=== PATIENT | female | born 1995 | race Caucasian/White ===

== ENCOUNTER 2024-01-30 23:42 | Inpatient (IN) ==
--- NOTE | 2024-01-30 23:55 | Emergency Department Note ---
History of Present Illness General Chief complaint: Alcohol Intoxication Stated complaint: ALCOHOL OVERDOSE Time Seen by Provider: 01/30/24 23:43 History of Present Illness This 28-year-old female presents ER for alcohol intoxication. She apparently drank too much alcohol at the basement. She could not ambulate and EMS was summoned. No other concerns per patient. History is obtained from EMS. Patient moans to sternal rub. Home Medications Medication Instructions Recorded Confirmed Type Unobtainable 01/31/24 01/31/24 History Past Med/Surg History Social History Smoking Status: Unknown if ever smoked Preferred Language: Macedonian Review of Systems A total of 10 systems reviewed and were otherwise negative Physical Exam Vital Signs Vital Signs - 24 hr 01/30/24 23:49 01/30/24 23:58 01/31/24 00:24 Temperature 36.5 C Temperature Source Oral Pulse Rate 82 78 Pulse Rate [Left Finger] Respiratory Rate 18 Respiratory Effort / Characteristics Non-Labored Respiratory Depth Normal Blood Pressure 120/98 Blood Pressure [Right Arm] Blood Pressure Mean 105 Blood Pressure Mean [Right Arm] Blood Pressure Position [Right Arm] Pulse Oximetry 95 93 Oxygen Delivery Method Room Air Room Air Sepsis Recent Fever Within 48 Hours No Sepsis New/Unexplained Change in Mental Status No Sepsis Action Taken by Nursing No Action Required 01/31/24 01:27 01/31/24 01:28 Temperature Temperature Source Pulse Rate Pulse Rate [Left Finger] 77 Respiratory Rate 15 Respiratory Effort / Characteristics Respiratory Depth Blood Pressure Blood Pressure [Right Arm] 103/77 Blood Pressure Mean Blood Pressure Mean [Right Arm] 85 Blood Pressure Position [Right Arm] Lying Pulse Oximetry 97 97 Oxygen Delivery Method Room Air Room Air Sepsis Recent Fever Within 48 Hours Sepsis New/Unexplained Change in Mental Status Sepsis Action Taken by Nursing PHYSICAL EXAM: VITALS: Vitals are noted on the nurse's note and reviewed by myself. Vital signs stable. GENERAL: White female with EtOH odor, patient moans to sternal rub. SKIN: The skin was without obvious lacerations, abrasions, or rashes. There is no tenting of the skin. Capillary reflex less than 2 seconds. HEENT: Normocephalic, atraumatic. PERRLA. EOMI. Conjunctiva with mild injection without icterus. Tympanic membranes without erythema or effusion bilaterally no hemotympanum. External auditory canals are clear. Nares patent bilaterally. No epistaxis. Oropharynx without erythema or exudate. Uvula midline. Oral mucosal moist. No lymphadenopathy. Neck is supple without cervical spine tenderness. HEART: Regular rate and rhythm LUNGS: Clear to auscultation bilaterally without wheezes, rales or rhonchi. ABDOMEN: Positive bowel sounds x 4. Normal tympanic percussion. Soft, nontender, without masses or organomegaly. MUSCULOSKELETAL: Gross motor function of the upper and lower extremities intact. The patient has a staggering gait. NEUROLOGIC: The patient is visibly intoxicated. Patient moans and withdraws to sternal rub. Course Administered Medications Sodium Chloride (Nss) 1,000 mls @ 999 mls/hr IV .Q1H1M ONE Stop: 01/31/24 01:53 Last Admin: 01/31/24 01:34 Dose: 999 mls/hr Documented By: KANU Medical Decision Making Medical Records Attestation: I reviewed the patient's medical records. Home Medications Current Medication List: was personally reviewed by me Laboratory Data Attestation: I reviewed the patient's lab results. 01/31/24 Unknown 01/30/24 23:57 Lab Results 01/30/24 01/31/24 01/31/24 Range/Units 23:57 01:25 Unknown WBC 9.29 (4.8-10.8) K/ul RBC 3.97 L (4.20-5.40) M/uL Hgb 12.8 (12.0-16.0) g/dl Hct 37.7 (37.0-47.0) % MCV 95.0 (80.0-100.0) fL MCH 32.2 (25.0-34.0) pg MCHC 34.0 (32.0-36.0) g/dL RDW Std Deviation 41.2 (36.4-46.3) fL RDW Coeff of Bharati 11.9 (11.5-14.5) % Plt Count 385 (130-400) K/uL MPV 9.5 (9.4-12.4) fL Immature Gran % (Auto) 0.3 % Neut % (Auto) 53.4 % Lymph % (Auto) 37.8 % Montgomery % (Auto) 6.7 % Eos % (Auto) 1.4 % Baso % (Auto) 0.4 % Neut # (Auto) 4.96 (1.40-6.50) K/uL Lymph # (Auto) 3.51 H (1.20-3.40) K/uL Montgomery # (Auto) 0.62 H (0.11-0.59) K/uL Eos # (Auto) 0.13 (0.00-0.50) K/uL Baso # (Auto) 0.04 (0.00-0.20) K/uL Immature Gran # (Auto) 0.03 (0.01-0.20) K/uL Sodium 139 (136-145) mmol/L Potassium 3.3 L (3.5-5.1) mmol/L Chloride 105 (98-107) mmol/L Carbon Dioxide 24 (21-32) mmol/L Anion Gap 10 (3-11) BUN 13 (6-23) mg/dl Creatinine 0.48 L (0.6-1.2) mg/dl Est Cr Clr Drug Dosing Not Reportable Est GFR ( Amer) > 150.0 ml/min Est GFR (Non-Af Amer) 132.6 ml/min BUN/Creatinine Ratio 27.1 H (10-20) Glucose 128 H (70-99(Fasting)) mg/dl Calcium 8.9 (8.6-10.3) mg/dl Total Bilirubin 0.2 (0.2-1.0) mg/dl AST 21 (13-39) U/L ALT 19 (7-52) U/L Alkaline Phosphatase 84 (34-104) U/L Total Protein 7.6 (6.0-8.3) gm/dl Albumin 4.6 (3.4-5.0) gm/dl Globulin 3.0 (2.5-4.0) gm/dl Albumin/Globulin Ratio 1.5 (0.9-2) HCG, Qual Negative (Negative) Ethyl Alcohol mg/dL 517.4 H 505.0 H (<10.0) mg/dl MDM Narrative Prior records/ancillary studies reviewed. Triage Nursing notes reviewed. Additional history obtained from EMS. The patient's history was concerning for altered mental status and a possible alcohol overdose. Differential diagnosis: Etiologies such as alcohol intoxication, toxicologic, infection, hypoglycemia, electrolyte abnormalities, cardiac sources, intracerebral event, neurologic, as well as others were entertained. Physical examination: As above. The patient is clinically intoxicated. no trauma noted. ER treatment provided: Monitoring An order was placed for continuous cardiac monitoring. The monitor shows a rate of 60-100 with a sinus rhythm. Aspiration precautions nss The patient was frequently reassessed. Diagnostic interpretation by me: Cardiac monitoring did not reveal any evidence of dysrhythmia. The labs Independently Interpreted by myself revealed glucose 128, negative hCG, potassium 3.3. The patient's blood alcohol level was 517 mg/dL. No worrisome leukocytosis, stable H&H Consultation: Medicine was consulted and the case discussed. Medicine will evaluate the patient for admission. This appears to be consistent with an isolated overdose of alcohol. Patient's alcohol is extremely high. Medicine was consulted case was discussed. She will be admitted to the medical service for further evaluation and treatment. Patient was maintaining her own airway. Her pulse ox remained stable. She did not require oxygen. She was given IV fluids as above. By the evaluation outlined above emergent etiologies such as trauma, infection, hypoglycemia, electrolyte abnormalities, cardiac sources, intracerebral event, neurologic,as well as others were deemed relatively unlikely. The chart was completed utilizing [employer] Speech voice recognition software. Grammatical errors, random word insertions, pronoun errors, and incomplete sentences are an occassional consequence of this system due to software limitations, ambient noise, and hardware issues. Any formal questions or concerns about the content, text, or information contained within the body of this dictation should be directly addressed to the physician assistant chief engineer for clarification. Impression & Plan Alcohol overdose, Alcoholic intoxication Discharge Plan Visit Data Chief Complaint: Alcohol Intoxication Stated Complaint: ALCOHOL OVERDOSE ED Provider: Elsy Menendez ED Midlevel Provider: Renee Dave Discharge Problem: Alcohol overdose, Alcoholic intoxication Patient Disposition: Admitted As Inpatient Condition: Good Forms Stand Alone Forms: Important Visit Information Prescriptions Prescriptions: No Action Unobtainable Referrals Referrals: PCP,NO [Primary Care Provider] - Discharge Problem: Alcohol overdose Qualifiers: Encounter type: initial encounter Injury intent: undetermined intent Qualified Code(s): T51.94XA - Toxic effect of unspecified alcohol, undetermined, initial encounter Alcoholic intoxication Qualifiers: Complication of substance-induced condition: uncomplicated Qualified Code(s): F 10.920 - Alcohol use, unspecified with intoxication, uncomplicated
[2024-01-31 00:36] LABS: Alanine Aminotransferase 19 U/L (7-52); Albumin Globulin Ratio 1.5 (0.9-2); Albumin Level 4.6 gm/dl (3.4-5.0); Alkaline Phosphatase 84 U/L (34-104); Anion Gap 10 (3-11); Aspartate Aminotransferase 21 U/L (13-39); BUN Creatinine Ratio 27.1 (10-20); Bilirubin,Total 0.2 mg/dl (0.2-1.0); Blood Urea Nitrogen 13 mg/dl (6-23); Calcium 8.9 mg/dl (8.6-10.3); Carbon Dioxide 24 mmol/L (21-32); Chloride 105 mmol/L (98-107); Est GFR (African American) > 150.0 ml/min; Est GFR (Non-African American) 132.6 ml/min; Glucose 128 mg/dl (70-99(Fasting)); Potassium 3.3 mmol/L (3.5-5.1); Sodium 139 mmol/L (136-145); Total Protein 7.6 gm/dl (6.0-8.3)
[2024-01-31 00:38] LABS: Pregnancy Test, Serum Negative (Negative)
[2024-01-31 01:30] LABS: Basophils # (auto) 0.04 K/uL (0.00-0.20); Basophils % (auto) 0.4 %; Eosinophils # (auto) 0.13 K/uL (0.00-0.50); Eosinophils % (auto) 1.4 %; Hematocrit (blood only) 37.7 % (37.0-47.0); Hemoglobin 12.8 g/dl (12.0-16.0); Immature Granulocytes # (auto) 0.03 K/uL (0.01-0.20); Immature Granulocytes % (auto) 0.3 %; Lymphocytes # (auto) 3.51 K/uL (1.20-3.40); Lymphocytes % (auto) 37.8 %; Mean Corpuscular Hemoglobin 32.2 pg (25.0-34.0); Mean Platelet Volume 9.5 fL (9.4-12.4); Monocytes # (auto) 0.62 K/uL (0.11-0.59); Monocytes % (auto) 6.7 %; Neutrophils # (auto) 4.96 K/uL (1.40-6.50); Neutrophils % (auto) 53.4 %; Platelet Count 385 K/uL (130-400); RDW Coefficient of Variation 11.9 % (11.5-14.5); RDW Standard Deviation 41.2 fL (36.4-46.3); Red Blood Count 3.97 M/uL (4.20-5.40); White Blood Count 9.29 K/ul (4.8-10.8)
[2024-01-31] MEDS: SODIUM CHLORIDE 0.9% 1,000 ML IV ONE (01:34)
--- NOTE | 2024-01-31 01:49 | History & Physical Report ---
"Date of Service January 31, 2024 Assessment & Plan (1) Alcoholic intoxication: (2) Alcohol overdose: Plan Summary: Renee is a 28F w/ unknown PMH who presented via EMS after being unable to walk home due to alcohol intoxication. ED Course: S/p 1 L NSS Alcohol Overdose | Alcohol Intoxication * EtOH level 513 on arrival * Patient only arousable to painful stimuli * Labs otherwise only remarkable for hypokalemia, repletion ordered * Continue IVF * Admit to med/tele for monitoring * Continue supportive measures * Tylenol PRN Code Status:Full Diet:NPO IVF:1.5 mIVF ordered DVT PPx:SCD CM: None Dispo: Med Tele History of Present Illness Chief Complaint: Alcohol Intoxication Primary Care Provider: NO PCP Renee is a 28F w/ unknown PMH who presented via EMS after being unable to walk home due to alcohol intoxication. Patient was noted to be drinking at [employer] when she was kicked out for excessive intoxication. A by stander offered to walk her home, but when she was unable to walk they called EMS for assistance. Patient only responsive to painful stimuli/sternal rub on examination, thus no further history obtained. Allergies Allergy/AdvReac Type Severity Reaction Status Date / Time No Known Allergies Allergy Verified 01/31/24 04:00 Home Medications Medication Instructions Recorded Confirmed Type Unobtainable 01/31/24 01/31/24 History Past Med/Surg History Social History Smoking Status: Unknown if ever smoked Hx Alcohol Use: No Hx Substance Use: No Preferred Language: Divehi Communication Ability: Effective Allied Health Professional Required: No Current Living Situation: Significant Other Current Living Situation Comment: with boyfriend Other Information That Helps Us Care for You: No Feels Safe at Home: Yes Safety Concerns: Feels Safe At This Time Assistive Devices: None Physical Exam Physical Exam: Gen: NAD, strong EtOH odor, patient prone Neuro: Moans/withdrawals to painful stimuli (IV placement, sternal rub) HEENT: Supple, NCAT, dilated pupils Resp:Non-labored, no wheezing/rhonchi/rales, CTAB CV:RRR, normal S1/S2, no M/R/G Abd: Soft, non-distended, no TTP, normoactive bowels, no masses Extr: 2+ dp bilaterally, no edema Skin: No rashes lesions or erythema Results & Data Results & Data Vital Signs (Past 12 Hours) Vital Signs Temp Pulse Pulse Resp BP BP Pulse Ox 01/31/24 01:28 77 15 103/77 97 01/31/24 01:27 97 01/31/24 00:24 78 01/30/24 23:58 93 01/30/24 23:49 36.5 C 82 18 120/98 95 O2 Del Method 01/31/24 01:28 Room Air 01/31/24 01:27 Room Air 01/31/24 00:24 01/30/24 23:58 Room Air 01/30/24 23:49 Room Air Code Status & VTE Plan VTE Prophylaxis Plan VTE Prophylaxis will be ordered: Yes Supervising Physician Co-Signing Physician Notes Attending addendum: I have physically seen this patient, have supervised the medical residents activities, and agree with the H&P unless as otherwise noted. Assessment and Plan: Alcohol overdose/alcohol intoxication/history of alcoholism- Alcohol level 517.4 on admission Admit to monitored bed Status post 1 L normal saline in the ED Continue IV fluids In the ED patient only rousable to painful stimuli Dehydration Supportive measures Hypokalemia/dehydration- Potassium 3.3 Replace with IV fluids, and recheck laboratories in a.m. Resident Activity Tracking Resident Involvement: Resident Care Provided Care Provided: Adult Hospital Medicine (night) (1) Alcoholic intoxication Complication of substance-induced condition: uncomplicated Qualified Code(s): F10.920 - Alcohol use, unspecified with intoxication, uncomplicated (2) Alcohol overdose Encounter type: initial encounter Injury intent: undetermined intent Qualified Code(s): T51.94XA - Toxic effect of unspecified alcohol, undetermined, initial encounter"
[2024-01-31 02:15] LABS: Partial Thromboplastin Ratio 1.1; Partial Thromboplastin Time 31 Seconds (21-31); Prothrombin Time 10.8 Seconds (9.0-12.0)
[2024-01-31] MEDS ORDERED: ACETAMINOPHEN 325 MG TAB PO PRN (03:07)
[2024-01-31] MEDS: Patient's ALLERGY Info needs ENTERED STA (03:51)
[2024-01-31] MEDS: POTASSIUM CHLORIDE / WTR 10 MEQ/100 ML PLCT IV SCH (04:09)
[2024-01-31] MEDS: SODIUM CHLORIDE 0.9% 1,000 ML IV SCH (04:09)
[2024-01-31] MEDS ORDERED: LORazepam 1 MG in SYRINGE 0.5 ML IV PRN (05:46)
--- NOTE | 2024-01-31 07:32 | Discharge Summary ---
"Date of Service January 31, 2024 Admission HPI Per Admitting Provider Renee is a 28F w/ unknown PMH who presented via EMS after being unable to walk home due to alcohol intoxication. Patient was noted to be drinking at [employer] when she was kicked out for excessive intoxication. A by stander offered to walk her home, but when she was unable to walk they called EMS for assistance. Patient only responsive to painful stimuli/sternal rub on examination, thus no further history obtained. This morning patient is able to converse, follow commands, answer questions meaningfully and appropriately but is laughing at most things, is likely still mild to moderately intoxicated. Patient expresses a desire to leave as soon as possible, if only to let her boyfriend know where she is. Does not have her phone with her or know her boyfriend's phone number but had been living in [place] but just recently moved out here. Admission Exam Per Admitting Provider Gen: NAD, strong EtOH odor, patient prone Neuro: Moans/withdrawals to painful stimuli (IV placement, sternal rub) HEENT: Supple, NCAT, dilated pupils Resp:Non-labored, no wheezing/rhonchi/rales, CTAB CV:RRR, normal S1/S2, no M/R/G Abd: Soft, non-distended, no TTP, normoactive bowels, no masses Extr: 2+ dp bilaterally, no edema Skin: No rashes lesions or erythema Principal Diagnosis acute alcohol intoxication Discharge Exam Constitutional WD/WN, vitals as above Respiratory normal respiratory effort, lungs clear to auscultation Cardiovascular RRR, no murmur, no edema Gastrointestinal (Abdomen) normal bowel sounds, soft, nontender, no hepatosplenomegaly Psychiatric A+Ox3, euthymic affect Orientation: cooperative Eye Contact: + fair eye contact Speech: normal rate/rhythm/volume of speech Suicidal Thoughts: + reports suicidal thoughts Cognition: attention grossly intact and language grossly intact; + recent memory not intact Discharge Data Allergies Allergy/AdvReac Type Severity Reaction Status Date / Time No Known Allergies Allergy Verified 01/31/24 04:00 Consultations 01/31/24 01:11 ED Decision to Admit Stat Hospital Course (1) Alcoholic intoxication: (2) Alcohol overdose: Plan Summary: Renee is a 28F w/ unknown PMH who presented via EMS after being unable to walk home due to alcohol intoxication. ED Course: S/p 1 L NSS Alcohol Overdose | Alcohol Intoxication * EtOH level 513 on arrival, repeat EtOH level 350 at 7 am * Patient arousable, AAO x 4, wants to leave and discusses this desire rationally and calmly * Labs otherwise only remarkable for hypokalemia, repletion ordered, Continue IVF * Admitted to med/tele for monitoring * Continue supportive measures including IVF and potassium repletion * Tylenol PRN * Mental health issues that could lead to repeated episodes of self-medication with alcohol were discussed w/ pt, as were medications that could help pt cope with cravings for alcohol --> patient indicated that she already had these medications per her PCP in [place] but has chosen not to use them; possible complications of alcohol overuse such as hepatitis, pancreatitis in addition to gastritis and withdrawal symptoms including but not limited to delirium tremens were discussed with patient Code Status:Full Diet:NPO IVF:1.5 mIVF ordered DVT PPx:SCD CM: None Dispo: Med Tele Total Time Total Time Spent Total Time Spent (In Minutes): <30 Discharge Plan Discharge Items Patient Disposition: Home - Self-Care Reason For Visit: ALCOHOL INTOXICATION Discharge Diagnosis: alcohol intoxication Condition on Discharge: Good Activity: Resume your previous activity Non-emergency contact: Primary Care Provider Call non-emergency contact if: you have any medication questions and your symptoms worsen Follow-up/Referrals: PCP,NO [Primary Care Provider] - Diet: Regular Addtl Attending Provider Instructions: You were admitted to the hospital for alcohol intoxication. You were treated with IV fluids (normal saline solution) and potassium repletion. A discharge summary will be sent to your primary care physician to ensure continuity of care. Please bring this discharge summary with you to your next office appointment so that your provider can review it at that time. Follow-up appointments: We have requested a follow-up appointment with your primary care physician within one week of discharge. Please call their office if you do not hear from them. Keep all your follow-up appointments as already scheduled. If you cannot make an appointment, notify your provider. Medications: Your medication list has been reviewed and reconciled upon discharge to ensure accuracy and continuity of care. An updated list of all your medications is included with your hospital discharge paperwork. Please review this list closely, and make note of any changes. Take your medications as instructed; do not skip a dose of your medicines. Make sure all of your doctors know every medicine you are taking (including upjq-[id number]-solnzzm medicines, vitamins, and supplements). Call your primary care provider before taking any new medicines (including ltnw-qkh-lzevggt medicines, vitamins, and supplements), because some of these may interact with your current medications, or may make your symptoms worse. Tell your primary care provider if you cannot afford your medications. CONTACT YOUR PRIMARY CARE PROVIDER if you experience any of the following: severe dehydration, problems controlling alcohol cravings alcohol withdrawal symptoms such as elevated heart rate, high blood pressure, tremors, hallucinations Difficulty following your treatment plan, or difficulty taking medications CALL 911 OR GO TO THE EMERGENCY DEPARTMENT if you experience any of the foll owing: Sudden, severe abdominal pain or nausea/vomiting Severe chest pain, or chest pain that radiates (moves) to your jaw or arm Sudden, severe shortness of breath or difficulty breathing Thank you for allowing us to participate in your care Pending Studies at Discharge: No Stand-Alone Forms: [facility], Smoking Cessation Medications and DC Order Prescriptions: No Action Unobtainable Discharge Orders: Discharge Order (Routine); Ordered 01/31/24 Ordered By: Quincy Cerda Admission Data Admit Date/Time: 01/31/24 01:37 Attending Provider: Kin Wisdom Admit Provider: Nicole Riley Primary Care Provider: PCP,NO Other Providers: Darron Flores Other Interventions: Discharge Summary Assessment (RN) Last Done: 01/31/24 11:37 Supervising Physician Co-Signing Physician Notes I personally examined the patient and verified all loera points of history and e xam, discussed case, and agree with decision making with Dr Cerda feeling better still depressed boyfriend supportive pt wants to go home. vitals noted nad heent nc at mmm breathing unlabored no accessory muscles good effort EtOH intoxication - hx c/w chronic EtOH abuse probably self medicating for depression. has care at home notes she needs to follow through more. discussed the utility of viewing EtOH as a maladaptive coping mechanism and building other coping/self treatment skills. she loosely expresses understanding. offered empathy and support. waiienanthony (phD student here) loosely expresses having had a similar journey that improved 5yrs ago, encouraged her to lean on his experience. safe/stable for home. outpt f/u. otherwise as above Resident Activity Tracking Resident Involvement: Resident Care Provided Care Provided: Adult Hospital Medicine"
--- NOTE | 2024-01-31 12:49 | Billing Data ---
Date of Service January 31, 2024 Coding Level of Care Code 24622 IN/OBS DISCH 30 MIN/LESS
--- NOTE | 2024-01-31 19:24 | Billing Data ---
Date of Service January 31, 2024 Coding Level of Care Code 91741 INT INP/OBS CARE
== END 2024-01-31 11:39 | disposition home or self-care (01) | DRG 897 ==
LOC: ED 23:42 → 2N 01-31 01:37 → SUATTDRO 01-31 01:37 → 2N 01-31 02:57